=== PATIENT | female | born 1980 | race Caucasian/White ===

== ENCOUNTER 2024-07-28 18:56 | Emergency (ER) | payer SELFPAY ==
[~2024-07-28] VITALS: Ht 172.7 cm; Wt 59.0 kg
[2024-07-28] MEDS: SODIUM CHLORIDE 0.9% 1,000 ML IV ONE (19:15)
[2024-07-28 19:42] LABS: Basophils # (auto) 0.1 10 ^3/uL (0-0.2); Basophils % (auto) 1.1 % (0.0-2.0); Eosinophils # (auto) 0.1 10 ^3/uL (0-0.8); Hematocrit 40.8 % (36.0-46.0); Hemoglobin 13.8 g/dL (12.2-16.2); Lymphocytes # (auto) 1.9 10 ^3/uL (0.4-5.4); Lymphocytes % (auto) 31.2 % (10.0-50.0); Mean Corpuscular Hemoglobin 30.3 pg (28.0-32.0); Mean Corpuscular Hgb Conc. 33.8 g/dL (32.0-36.0); Mean Corpuscular Volume 89.8 fL (80.0-100.0); Monocytes # (auto) 0.7 10 ^3/uL (0-1.3); Monocytes % (auto) 11.5 % (0.0-12.0); Neutrophils # (auto) 3.3 10 ^3/uL (1.6-8.6); Neutrophils % (auto) 54.2 % (37.0-80.0); Nucleated Red Blood Cells % 0.1 %; Platelet Count (auto) 346 10^3/uL (140-450); Red Blood Cells 4.55 10^6/uL (4.0-5.20); Red Cell Distribution Width 14.2 % (11.8-14.3); White Blood Cell 6.1 10^3/uL (4.4-10.8)
[2024-07-28 19:52] LABS: Chloride 112 mmol/L (98-107); Potassium 3.7 mmol/L (3.5-5.1); Sodium 142 mmol/L (136-145)
[2024-07-28 19:53] LABS: Anion Gap 5 (5-15); Calcium 9.5 mg/dL (8.7-10.4); Carbon Dioxide 25 mmol/L (20-31)
[2024-07-28 19:58] LABS: Blood Urea Nitrogen 16 mg/dL (9-23); Glucose 113 mg/dL (74-106)
[2024-07-28 19:59] LABS: Blood Alcohol 3.7 mg/dL (<10)
[2024-07-28 22:49] VITALS: BP 120/66; TEMP 98.3
[2024-07-28 22:50] VITALS: PULSE 80; RESP 18; O2SAT 99
== END 2024-07-28 22:54 | disposition home or self-care (01) ==
LOC: ER 18:56 → EDBD 18:56 → ER 22:54
DX: M79.10 Myalgia, unspecified site (principal); R10.2 Pelvic and perineal pain
CPT/HCPCS: 36415; 80048; 80320; 84702; 85025; 93005; 96360; 96361; 99284; J7030